=== PATIENT | female | born 1945 | race Caucasian/White ===

== ENCOUNTER 2021-07-26 13:45 | Emergency (ER) | payer MEDICARE, OTHER ==
[~2021-07-26] VITALS: Ht 157.4 cm; Wt 64.8 kg
[2021-07-26] MEDS ORDERED: NS IV 1000 ML 1,000 ML IV STA (14:06)
[2021-07-26 14:10] LABS: BASOPHILS % (AUTO) 1 % (0-10); EOSINOPHILS % (AUTO) 0 % (0-10); HEMATOCRIT 43 % (35-52); HEMOGLOBIN 14.4 g/dL (11.5-16.0); LYMPHOCYTES # (AUTO) 1.1 X 10^3 (1.0-4.0); LYMPHOCYTES % (AUTO) 32 % (12-44); MEAN CORPUSCULAR HEMOGLOBIN 30 pg (25-34); MEAN CORPUSCULAR HGB CONC 33 g/dL (32-36); MEAN CORPUSCULAR VOLUME 91 fL (80-99); MEAN PLATELET VOLUME 9.3 fL (9.0-12.2); MONOCYTES # (AUTO) 0.5 X 10^3 (0.0-1.0); MONOCYTES % (AUTO) 16 % (0-12); NEUTROPHILS # (AUTO) 1.7 X 10^3 (1.8-7.8); NEUTROPHILS % (AUTO) 52 % (42-75); PLATELET COUNT 186 10^3/uL (130-400); WHITE BLOOD COUNT 3.4 10^3/uL (4.3-11.0)
[2021-07-26 14:20] LABS: INR 0.9 (0.8-1.4)
--- NOTE | 2021-07-26 14:23 | ED General ---
General Chief Complaint: Chest Pain Stated Complaint: UPPER BACK PAIN/NAUSEA/DIZZINESS Source of Information: Patient History of Present Illness Date Seen by Provider: Jul 26, 2021 Time Seen by Provider: 13:50 Initial Comments 75-year-old female presenting with complaints of pain in her upper back between her shoulders as well as pain in her chest. She has had nausea and dizziness since last night. She has had chronic cough as she is a smoker. She denies having fever, chills, abdominal pain, burning with urination, swelling in her legs or feet, more shortness of breath than usual. She has been feeling dizzy and lightheaded especially when she stands up. She does have a history of triple bypass and pacemaker placement. She follows with cardiology out of [facility] in [place]. Severity: Moderate Modifying Factors: worse with Movement Associated Systoms: Chest Pain, Cough (chronic); No Diaphoresis, No Fever/Chills, No Headaches, No Loss of Appetite, No Malaise; Nausea/Vomiting (nausea but no vomiting); No Rash, No Seizure; Shortness of Air (chronic from smoking); No Syncope, No Weakness Allergies and Home Medications Allergies Coded Allergies: naproxen (Verified Allergy, Unknown, Rash, 07/26/21) blood blisters Patient Home Medication List Home Medication List Reviewed: Yes Review of Systems Review of Systems Constitutional: No chills, No fever EENTM: no symptoms reported Respiratory: see HPI Cardiovascular: see HPI Gastrointestinal: see HPI, nausea; No vomiting Genitourinary: no symptoms reported Musculoskeletal: see HPI, back pain (upper back pain across shoulders) Skin: no symptoms reported Psychiatric/Neurological: Anxiety Past Htsmmsr-Pfulnx-Csxgar Hx Patient Social History Tobacco Use?: Yes Tobacco type used: Cigarettes Smoking Status: Current Everyday Smoker Past Medical History Surgery/Hospitalization HX: CABG x 3, Pacemaker, Borderline DM, Htn, High Cholesterol, Chronic smoker, renal cell carcinoma with nephrectomy Surgeries: Yes Cardiac, CABG, Nephrectomy (Renal Cell Carcinoma), Pacemaker Respiratory: Yes COPD Cardiac: Yes Coronary Artery Disease, High Cholesterol, Hypertension Neurological: Yes Dementia (Early memory issues per patient) Genitourinary: No Gastrointestinal: No Musculoskeletal: Yes Osteoporosis, Arthritis Endocrine: Yes (Borderline DM) Cancer: Yes Kidney Did You Recieve Any Treatments: Yes What Type of Treatment Did You: Surgical Intervention Psychosocial: Yes Anxiety Physical Exam Vital Signs Vital Signs - First Documented 2/6/22 13:45 Temp 36.5 Pulse 64 Resp 16 B/P (MAP) 142/63 (89) Pulse Ox 95 O2 Delivery Room Air Capillary Refill : Height, Weight, BMI Height: '" Weight: lbs. oz. kg; BMI Method: General Appearance: WD/WN, Anxious HEENT: PERRL/EOMI, Pharynx Normal Neck: Full Range of Motion, Normal Inspection, Non Tender, Supple Respiratory: Chest Non Tender, Lungs Clear, Normal Breath Sounds, No Accessory Muscle Use, No Respiratory Distress Cardiovascular: Regular Rate, Rhythm, Normal Peripheral Pulses Gastrointestinal: Normal Bowel Sounds, No Pulsatile Mass, Non Tender, Soft Rectal: Deferred Back: No CVA Tenderness Extremity: Normal Capillary Refill, Normal Inspection, No Pedal Edema Neurologic/Psychiatric: Alert, Oriented x3, silk folder II-XII Norm as Tested Skin: Normal Color, Warm/Dry Progress/Results/Core Measures Suspected Sepsis SIRS Temperature: Pulse: Respiratory Rate: Laboratory Tests 07/26/21 13:59: White Blood Count 3.4L Blood Pressure / Mean: Laboratory Tests 07/26/21 13:59: Creatinine 1.43H, INR Comment 0.9, Platelet Count 186, Total Bilirubin 0.4 Results/Orders Lab Results Laboratory Tests Test 07/26/21 13:59 07/26/21 15:54 Range/Units White Blood Count 3.4 L 4.3-11.0 10^3/uL Red Blood Count 4.76 3.80-5.11 10^6/uL Hemoglobin 14.4 11.5-16.0 g/dL Hematocrit 43 35-52 % Mean Corpuscular Volume 91 80-99 fL Mean Corpuscular Hemoglobin 30 25-34 pg Mean Corpuscular Hemoglobin Concent 33 32-36 g/dL Red Cell Distribution Width 13.3 10.0-14.5 % Platelet Count 186 130-400 10^3/uL Mean Platelet Volume 9.3 9.0-12.2 fL Immature Granulocyte % (Auto) 0 % Neutrophils (%) (Auto) 52 42-75 % Lymphocytes (%) (Auto) 32 12-44 % Monocytes (%) (Auto) 16 H 0-12 % Eosinophils (%) (Auto) 0 0-10 % Basophils (%) (Auto) 1 0-10 % Neutrophils # (Auto) 1.7 L 1.8-7.8 X 10^3 Lymphocytes # (Auto) 1.1 1.0-4.0 X 10^3 Monocytes # (Auto) 0.5 0.0-1.0 X 10^3 Eosinophils # (Auto) 0.0 0.0-0.3 10^3/uL Basophils # (Auto) 0.0 0.0-0.1 10^3/uL Immature Granulocyte # (Auto) 0.0 0.0-0.1 10^3/uL Prothrombin Time 13.0 12.2-14.7 SEC INR Comment 0.9 0.8-1.4 Activated Partial Thromboplast Time 27 24-35 SEC Sodium Level 134 L 135-145 MMOL/L Potassium Level 4.2 3.6-5.0 MMOL/L Chloride Level 101 98-107 MMOL/L Carbon Dioxide Level 20 L 21-32 MMOL/L Anion Gap 13 5-14 MMOL/L Blood Urea Nitrogen 25 H 7-18 MG/DL Creatinine 1.43 H 0.60-1.30 MG/DL Estimat Glomerular Filtration Rate 38 BUN/Creatinine Ratio 17 Glucose Level 109 H 70-105 MG/DL Calcium Level 9.5 8.5-10.1 MG/DL Corrected Calcium 9.2 8.5-10.1 MG/DL Magnesium Level 1.9 1.6-2.4 MG/DL Total Bilirubin 0.4 0.1-1.0 MG/DL Aspartate Amino Transf (AST/SGOT) 23 5-34 U/L Alanine Aminotransferase (ALT/SGPT) 15 0-55 U/L Alkaline Phosphatase 72 40-136 U/L Myoglobin 83.3 10.0-92.0 NG/ML Troponin I < 0.30 <0.30 NG/ML Pro-B-Type Natriuretic Peptide 218.8 H <75.0 PG/ML Total Protein 7.1 6.4-8.2 GM/DL Albumin 4.4 3.2-4.5 GM/DL Lipase 34 8-78 U/L Urine Color YELLOW Urine Clarity CLEAR Urine pH 5.5 5-9 Urine Specific [place] 1.020 1.016-1.022 Urine Protein NEGATIVE NEGATIVE Urine Glucose (UA) NEGATIVE NEGATIVE Urine Ketones NEGATIVE NEGATIVE Urine Nitrite NEGATIVE NEGATIVE Urine Bilirubin NEGATIVE NEGATIVE Urine Urobilinogen 0.2 < = 1.0 MG/DL Urine Leukocyte Esterase NEGATIVE NEGATIVE Urine RBC (Auto) NEGATIVE NEGATIVE Urine RBC NONE /HPF Urine WBC NONE /HPF Urine Squamous Epithelial Cells 5-10 /HPF Urine Crystals NONE /LPF Urine Bacteria TRACE /HPF Urine Casts NONE /LPF Urine Hyaline Casts 2-5 H /LPF Urine Mucus MODERATE H /LPF Urine Culture Indicated NO My Orders Orders - LORETTA GREENBERG MD Cbc With Automated Diff (07/26/21 14:03) Magnesium (07/26/21 14:03) Chest 1 View Ap/Pa Only (07/26/21 14:03) Ekg Tracing (07/26/21 14:03) Comprehensive Metabolic Panel (07/26/21 14:03) Myoglobin Serum (07/26/21 14:03) Protime With Inr (07/26/21 14:03) Partial Thromboplastin Time (07/26/21 14:03) O2 (07/26/21 14:03) Monitor-Rhythm Ecg Trace Only (07/26/21 14:03) Ed Iv/Invasive Line Start (07/26/21 14:03) Lipase (07/26/21 14:03) Troponin I Fs (07/26/21 14:03) Probnp Fs (07/26/21 14:03) Ct Angio Chest W (07/26/21 14:03) Ns Iv 1000 Ml (Sodium Chloride 0.9%) (07/26/21 14:06) Ua Culture If Indicated (07/26/21 14:07) Iohexol Injection (Omnipaque 350 Mg/Ml 1 (07/26/21 14:45) Received Contrast (Hold Metformin- Contr (07/26/21 14:45) Ns (Ivpb) (Sodium Chloride 0.9% Ivpb Bag (07/26/21 14:45) Vital Signs/I&O 07/26/21 07/26/21 13:45 16:19 Temp 36.5 36.5 Pulse 64 60 Resp 16 14 B/P (MAP) 142/63 (89) 124/53 Pulse Ox 95 96 O2 Delivery Room Air Room Air Capillary Refill : Progress Note #1: Progress Note Check labs and electrolytes as well as cardiac enzymes. Obtain chest x-ray to evaluate her heart and lungs. Ordered CT angiogram of the chest to look at her aorta and blood vessels in the chest. Give IV fluids to try and help with her sensation of dizziness. 1 L NS IV fluid bolus for hydration. Progress Note #2: Progress Note Labs show no acute significant abnormality on her CBC to account for her symptoms. Her chemistry panel does show renal insufficiency with an elevated BUN and creatinine. Due to the elevated creatinine and low GFR she was asked questions about her renal function and at that point she remembered that she had a kidney removed due to renal cell carcinoma. Since she just has the one kidney and has dehydration or at least renal insufficiency will defer CT angiogram of her chest unless her chest x-ray showed widened mediastinum her abnormality of the aorta. She does not have any ST elevation on her electrocardiogram. She states that she was feeling better as we given her IV fluids here in the ED. Her initial blood pressure had been low and she was orthostatic. This has improved as she got a liter of normal saline for IV fluid hydration. Progress Note #3: Progress Note Chest x-ray does not show any acute abnormality with her aorta or mediastinum to the [place] that it would be worth the risk of damaging her kidney by giving her IV contrast to perform a CT angiogram. Especially considering that she was not having any further symptoms as she had been hydrated and her blood pressure came up. Counseled to try to drink more fluids. Obtained a urine specimen to ensure that she does not have a UTI that might be contributing to her symptoms. Progress Note #4: Progress Note Urinalysis was clear and did not show signs of UTI. Continue to encourage pat ient to drink fluids at home. Counseled on follow-up and return precautions. Advised to follow-up with her primary provider as well as her card feeder. Return for worsening symptoms or if she has something new develop. ECG Initial ECG Impression Date: Jul 26, 2021 Initial ECG Impression Time: 13:47 Initial ECG Rate: 64 Initial ECG Comparisson: No Previous ECG Available Comment Atrial paced rhythm with a rate of 64 bpm. [place] interval [address] elevation. QT interval 398 ms with a QTc interval of 411 ms. No prior tracing available for comparison. Diagnostic Imaging Diagonstic Imaging: Xray Plain Films/CT/US/NM/MRI: chest Comments [facility] [place], [place] NAME: TYREL MARTIN [facility] REC#: [id number] PT STATUS: REG ER : 1945 PHYSICIAN: LORETTA GREENBERG MD ADMIT DATE: 07/26/21/ER FS Signed Date of Exam:07/26/21 CHEST 1 VIEW AP/PA ONLY EXAMINATION: Chest radiograph, portable AP view. DATE: 07/26/2021 2:56 PM INDICATION: 75-year-old female, cough, shortness of breath. COMPARISON: None. FINDINGS: There are median sternotomy wires. There is a left-sided cardiac assist device with leads. Heart size and mediastinal contours are unremarkable. There is no identified pneumothorax. There is no large pleural effusion. There is no identified focal airspace consolidation. IMPRESSION: No identified acute cardiopulmonary abnormality. Dictated by: Dictated on workstation # [id number] Dict: 07/26/21 1504 Trans: 07/26/21 1545 PJ [id number] Interpreted by: MARIA ELENA TENORIO MD Electronically signed by: MARIA ELENA TENORIO MD 07/26/21 1545 Reviewed: Reviewed by Me Departure Impression Primary Impression: Acute upper back pain Additional Impressions: Chest pain Qualified Codes: R07.9 - Chest pain, unspecified Hypotension Qualified Codes: I95.9 - Hypotension, unspecified Disposition: 01 HOME, SELF-CARE Condition: Improved Departure-Patient Inst. Decision time for Depature: 16:11 Referrals: [facility] Patient Instructions: Upper Back Pain ED, Chest Pain, Adult ED, Low Blood Pressure (DC) Add. Discharge Instructions: Your tests look ok from a heart standpoint today and the pacemaker appears to be working ok It does look like you were dehydrated and you were doing better after getting some extra fluids. Keep drinking plenty of water and stay well hydrated. Check back with your regular providers and card feeder for continued concerns. Return or seek medical care for worsening symptoms or new problems. All discharge instructions reviewed with patient and/or family. Voiced understanding. LORETTA GREENBERG MD Jul 26, 2021 14:23
[2021-07-26 14:32] LABS: POTASSIUM 4.2 MMOL/L (3.6-5.0)
[2021-07-26 14:33] LABS: ALBUMIN 4.4 GM/DL (3.2-4.5); BILIRUBIN,TOTAL 0.4 MG/DL (0.1-1.0); CALCIUM 9.5 MG/DL (8.5-10.1); CREATININE SERUM 1.43 MG/DL (0.60-1.30); MAGNESIUM 1.9 MG/DL (1.6-2.4); TOTAL PROTEIN 7.1 GM/DL (6.4-8.2)
[2021-07-26] MEDS ORDERED: NS 100 ML (IVPB) BAG IV ONE (14:45)
[2021-07-26] MEDS ORDERED: HOLD METFORMIN - RECEIVED CONTRAST 20 ML VIAL IV SCH (14:45)
[2021-07-26] MEDS ORDERED: IOHEXOL 350 MG/ML 150 ML (OMNIPAQUE 350) VIAL IV ONE (14:45)
--- NOTE | 2021-07-26 15:06 | Diagnostic Imaging Report ---
EXAMINATION: Chest radiograph, portable AP view. DATE: 07/26/2021 2:56 PM INDICATION: 75-year-old female, cough, shortness of breath. COMPARISON: None. FINDINGS: There are median sternotomy wires. There is a left-sided cardiac assist device with leads. Heart size and mediastinal contours are unremarkable. There is no identified pneumothorax. There is no large pleural effusion. There is no identified focal airspace consolidation. IMPRESSION: No identified acute cardiopulmonary abnormality. Dictated by: Dictated on workstation # [id number]
[2021-07-26 16:01] LABS: BACTERIA,URINE TRACE /HPF; BILIRUBIN,URINE NEGATIVE (NEGATIVE); CLARITY,URINE CLEAR; COLOR,URINE YELLOW; GLUCOSE, URINE (UA) NEGATIVE (NEGATIVE); KETONES,URINE NEGATIVE (NEGATIVE); LEUKOCYTE ESTERASE ,URINE NEGATIVE (NEGATIVE); NITRITE,URINE NEGATIVE (NEGATIVE); PH,URINE 5.5 (5-9); PROTEIN,URINE NEGATIVE (NEGATIVE)
[2021-07-26 16:19] VITALS: BP 124/53
== END 2021-07-26 16:19 | disposition home or self-care (01) ==
LOC: ER FS 13:54
DX: M54.6 Pain in thoracic spine (principal); R07.9 Chest pain, unspecified; I95.9 Hypotension, unspecified; J44.9 Chronic obstructive pulmonary disease, unspecified; I10 Essential (primary) hypertension; F03.90 Unspecified dementia, unspecified severity, without behavioral disturbance, psychotic disturbance, mood disturbance, and anxiety; E11.9 Type 2 diabetes mellitus without complications; F17.210 Nicotine dependence, cigarettes, uncomplicated
CPT/HCPCS: 36415; 71045; 80053; 81000; 83690; 83735; 83874; 83880; 84484; 85025; 85610; 85730; 93005; 93041

== ENCOUNTER → 2022-04-14 | Outpatient (CLI) | payer MEDICARE, OTHER ==
[~2022-04-14] MED LIST: CATHETER FLUSH 10 ML SYR IV PRN; HOLD METFORMIN - RECEIVED CONTRAST 20 ML VIAL IV SCH; IOHEXOL 350 MG/ML 100 ML (OMNIPAQUE 350) VIAL IV ONE; NS 100 ML (IVPB) BAG IV ONE
[2022-04-14 11:55] LABS: POTASSIUM 4.5 MMOL/L (3.6-5.0)
[2022-04-14 11:56] LABS: ALBUMIN 4.5 GM/DL (3.2-4.5); BILIRUBIN,TOTAL 0.5 MG/DL (0.1-1.0); CREATININE SERUM 1.25 MG/DL (0.60-1.30)
--- NOTE | 2022-04-14 12:57 | Diagnostic Imaging Report ---
PROCEDURE: CT abdomen and pelvis without contrast. TECHNIQUE: Multiple contiguous axial images were obtained through the abdomen and pelvis without the use of intravenous contrast. Auto Exposure Controls were utilized during the CT exam to meet ALARA standards for radiation dose reduction. INDICATION: Lower abdominal pain and renal cancer. COMPARISON: No prior studies are available for comparison. FINDINGS: The lung bases are clear. The liver and gallbladder are unremarkable. There is no biliary ductal dilatation. The pancreas and spleen are unremarkable. No adrenal mass is identified. Left kidney appears to be surgically absent. No residual or recurrent mass is identified. The right kidney is unremarkable. Aorta is heavily calcified but nonaneurysmal. Bowel loops are normal in caliber. There is extensive diverticulosis of the sigmoid colon but no evidence of acute diverticulitis. No free fluid or fluid collection is seen. Bladder is unremarkable. Bony structures are nonacute. IMPRESSION: 1. Status post left nephrectomy. No residual or recurrent mass is identified. No definite abdominal or pelvic lymphadenopathy is identified. 2. Uncomplicated diverticulosis. Dictated by: Dictated on workstation # [id number]
== END ==
LOC: LAB FS 11:09
PROVIDERS: ATTEND Nurse Practitioner
DX: K57.30 Diverticulosis of large intestine without perforation or abscess without bleeding (principal); I10 Essential (primary) hypertension; E78.5 Hyperlipidemia, unspecified; Z90.5 Acquired absence of kidney; Z85.528 Personal history of other malignant neoplasm of kidney
CPT/HCPCS: 36415; 74176; 80053

== ENCOUNTER 2022-10-10 14:53 | Emergency (ER) | payer MEDICARE, OTHER ==
[~2022-10-10] VITALS: Ht 157 cm; Wt 62.0 kg
[2022-10-10] MEDS ORDERED: ASPIRIN 81 MG CHEW (CHILDREN'S ASA) PO ONE (15:00)
[2022-10-10 15:12] LABS: BASOPHILS % (AUTO) 0 % (0-10); EOSINOPHILS % (AUTO) 0 % (0-10); HEMATOCRIT 49 % (35-52); HEMOGLOBIN 15.9 g/dL (11.5-16.0); LYMPHOCYTES # (AUTO) 0.6 10^3/uL (1.0-4.0); LYMPHOCYTES % (AUTO) 8 % (12-44); MEAN CORPUSCULAR HEMOGLOBIN 30 pg (25-34); MEAN CORPUSCULAR HGB CONC 33 g/dL (32-36); MEAN CORPUSCULAR VOLUME 92 fL (80-99); MEAN PLATELET VOLUME 9.7 fL (9.0-12.2); MONOCYTES # (AUTO) 0.2 10^3/uL (0.0-1.0); MONOCYTES % (AUTO) 2 % (0-12); NEUTROPHILS # (AUTO) 7.2 10^3/uL (1.8-7.8); NEUTROPHILS % (AUTO) 89 % (42-75); PLATELET COUNT 253 10^3/uL (130-400)
[2022-10-10 15:17] LABS: INR 0.9 (0.8-1.4); PROTHROMBIN TIME PATIENT 12.5 SEC (12.2-14.7)
[2022-10-10 15:24] LABS: BUN/CREATININE RATIO 19; CARBON DIOXIDE 25 MMOL/L (21-32); CHLORIDE 103 MMOL/L (98-107); CREATININE SERUM 1.17 MG/DL (0.60-1.30); GFR ESTIMATED 48; GLUCOSE 138 MG/DL (70-105); MAGNESIUM 2.1 MG/DL (1.6-2.4); POTASSIUM 4.6 MMOL/L (3.6-5.0); SODIUM 138 MMOL/L (135-145)
[2022-10-10 15:25] LABS: ALANINE AMINOTRANSFERASE 19 U/L (0-55); ALBUMIN 4.8 GM/DL (3.2-4.5); ALKALINE PHOSPHATASE 73 U/L (40-136); BILIRUBIN,TOTAL 0.5 MG/DL (0.1-1.0); TOTAL PROTEIN 7.9 GM/DL (6.4-8.2)
--- NOTE | 2022-10-10 15:38 | Diagnostic Imaging Report ---
INDICATION: Chest pain. TECHNIQUE: Single view chest 3:28 PM. CORRELATION STUDY: 07/26/2021. FINDINGS: Poststernotomy change. Heart size and mediastinum are stable with left-sided pacemaker unchanged. Azygos lobe. Elevated right diaphragm. No infiltrate. No significant effusion or pneumothorax. IMPRESSION: Generally stable chest demonstrates no acute abnormality. Dictated by: Dictated on workstation # [id number]
[2022-10-10 15:48] LABS: LYMPHOCYTES % (MANUAL) 8 %; MONOCYTES % (MANUAL) 2 %; NEUTROPHILS % (MANUAL) 90 %
--- NOTE | 2022-10-10 15:48 | ED Chest Pain ---
General Chief Complaint: Chest Pain Stated Complaint: CHEST PAIN Nursing Triage Note: Patient has presented to ER with cc chest pain on her left side. The pain is sometimes sharp and today it has become constant and dull with some small episodes of pain. The pain started intermittant 2 days ago. She denies any injury to her chest wall. History of Present Illness Date Seen by Provider: Oct 10, 2022 Time Seen by Provider: 14:56 Initial Comments 77-year-old female with PMH of CAD with [place] approximately 6 to 7 years ago/pacemaker, placed 6 to 7 years ago/thyroid disorder/HTN/active smoker (pt smoking since age 14 yrs), and smokes 1.5 packs a day since then. Patient is here with complaints of left-sided chest pain which is intermittent for the past 2 days. Patient states that her chest hurts when she presses down upon it. Patient had a little bit of shortness of breath early today morning but has since resolved. She occasionally gets acid reflux. Denies palpitations, fever and chills, abdominal pain, nausea and vomiting, diaphoresis. Patient is unsure why she has a pacemaker. She is not on a blood thinner except for baby aspirin. Allergies and Home Medications Allergies Coded Allergies: naproxen (Verified Allergy, Unknown, Rash, 07/26/21) blood blisters Patient Home Medication List Home Medication List Reviewed: Yes Review of Systems Review of Systems Constitutional: no symptoms reported EENTM: No Symptoms Reported Respiratory: No Symptoms Reported Cardiovascular: Chest Pain Gastrointestinal: No Symptoms Reported Genitourinary: No Symptoms Reported Musculoskeletal: no symptoms reported Skin: no symptoms reported Psychiatric/Neurological: No Symptoms Reported Endocrine: No Symptoms Reported Hematologic/Lymphatic: No Symptoms Reported Past Riynvqi-Qqgoxm-Gpidlv Hx Patient Social History Tobacco Use?: Yes Tobacco type used: Cigarettes Smoking Status: Current Everyday Smoker Use of E-Cig and/or Vaping dev: No Substance use?: No Alcohol Use?: No Immunizations Up To Date First/Initial COVID19 Vaccinat: Not currently Vaccinated Past Medical History Surgery/Hospitalization HX: CABG x 3, Pacemaker, Borderline DM, Htn, High Cholesterol, Chronic smoker, renal cell carcinoma with nephrectomy Surgeries: Yes Cardiac, CABG, Nephrectomy, Pacemaker Respiratory: Yes COPD Cardiac: Yes Coronary Artery Disease, High Cholesterol, Hypertension Neurological: Yes Dementia Genitourinary: No Gastrointestinal: No Musculoskeletal: Yes Osteoporosis, Arthritis Endocrine: Yes (Borderline DM) Cancer: Yes Kidney Did You Recieve Any Treatments: Yes What Type of Treatment Did You: Surgical Intervention Psychosocial: Yes Anxiety Physical Exam Vital Signs Capillary Refill : Height, Weight, BMI Height: '" Weight: lbs. oz. kg; 25.00 BMI Method: General Appearance: No Apparent Distress, WD/WN HEENT: PERRL/EOMI Neck: Full Range of Motion Respiratory: Lungs Clear, Normal Breath Sounds, Other (Chest wall point tenderness present over the second, third, costochondral junctions on palpation, which is reproducible.) Cardiovascular: Regular Rate, Rhythm, No Edema Gastrointestinal: Non Tender, Soft Neurologic/Psychiatric: Alert, Oriented x3, No Motor/Sensory Deficits Skin: Normal Color Progress/Results/Core Measures Results/Orders Lab Results Laboratory Tests Test 10/10/22 15:00 10/10/22 16:26 Range/Units White Blood Count 8.0 4.3-11.0 10^3/uL Red Blood Count 5.30 H 3.80-5.11 10^6/uL Hemoglobin 15.9 11.5-16.0 g/dL Hematocrit 49 35-52 % Mean Corpuscular Volume 92 80-99 fL Mean Corpuscular Hemoglobin 30 25-34 pg Mean Corpuscular Hemoglobin Concent 33 32-36 g/dL Red Cell Distribution Width 13.8 10.0-14.5 % Platelet Count 253 130-400 10^3/uL Mean Platelet Volume 9.7 9.0-12.2 fL Immature Granulocyte % (Auto) 1 % Neutrophils (%) (Auto) 89 H 42-75 % Lymphocytes (%) (Auto) 8 L 12-44 % Monocytes (%) (Auto) 2 0-12 % Eosinophils (%) (Auto) 0 0-10 % Basophils (%) (Auto) 0 0-10 % Neutrophils # (Auto) 7.2 1.8-7.8 10^3/uL Lymphocytes # (Auto) 0.6 L 1.0-4.0 10^3/uL Monocytes # (Auto) 0.2 0.0-1.0 10^3/uL Eosinophils # (Auto) 0.0 0.0-0.3 10^3/uL Basophils # (Auto) 0.0 0.0-0.1 10^3/uL Immature Granulocyte # (Auto) 0.1 0.0-0.1 10^3/uL Neutrophils % (Manual) 90 % Lymphocytes % (Manual) 8 % Monocytes % (Manual) 2 % Prothrombin Time 12.5 12.2-14.7 SEC INR Comment 0.9 0.8-1.4 Activated Partial Thromboplast Time 22 L 24-35 SEC D-Dimer 0.27 0.00-0.49 UG/ML Sodium Level 138 135-145 MMOL/L Potassium Level 4.6 3.6-5.0 MMOL/L Chloride Level 103 98-107 MMOL/L Carbon Dioxide Level 25 21-32 MMOL/L Anion Gap 10 5-14 MMOL/L Blood Urea Nitrogen 22 H 7-18 MG/DL Creatinine 1.17 0.60-1.30 MG/DL Estimat Glomerular Filtration Rate 48 BUN/Creatinine Ratio 19 Glucose Level 138 H 70-105 MG/DL Calcium Level 11.0 H 8.5-10.1 MG/DL Corrected Calcium 8.5-10.1 MG/DL Magnesium Level 2.1 1.6-2.4 MG/DL Total Bilirubin 0.5 0.1-1.0 MG/DL Aspartate Amino Transf (AST/SGOT) 19 5-34 U/L Alanine Aminotransferase (ALT/SGPT) 19 0-55 U/L Alkaline Phosphatase 73 40-136 U/L Troponin I < 0.30 < 0.30 <0.30 NG/ML Pro-B-Type Natriuretic Peptide 1061.0 H <450.0 PG/ML Total Protein 7.9 6.4-8.2 GM/DL Albumin 4.8 H 3.2-4.5 GM/DL My Orders Orders - WINTER HERRERA MD Continuous Ekg Monitoring (10/10/22 14:58) Ekg Tracing (10/10/22 14:58) Chest 1 View Ap/Pa Only (10/10/22 14:58) Cbc With Automated Diff (10/10/22 14:59) Magnesium (10/10/22 14:59) Comprehensive Metabolic Panel (10/10/22 14:59) Protime With Inr (10/10/22 14:59) Partial Thromboplastin Time (10/10/22 14:59) Aspirin Chewable Tablet (Baby Aspirin Ch (10/10/22 15:00) Ed Iv/Invasive Line Start (10/10/22 14:59) Fibrin Degradation Products (10/10/22 14:59) Troponin I Fs (10/10/22 14:59) Probnp Fs (10/10/22 14:59) Manual Differential (10/10/22 15:00) Famotidine Injection (Pepcid Injection) (10/10/22 16:00) Antacid Suspension (Mylanta Suspension (10/10/22 16:00) Ekg Tracing (10/10/22 16:26) Troponin I Fs (10/10/22 16:26) Medications Given in ED Current Medications Medications Dose Ordered Sig/Tim Route Start Time Stop Time Status Last Admin Dose Admin Al Hydrox/Mg Hydrox/Simethicone 30 ml ONCE ONCE PO 10/10/22 16:00 10/10/22 16:01 DC 10/10/22 16:18 30 ML Aspirin 324 mg ONCE ONCE PO 10/10/22 15:00 10/10/22 15:10 DC 10/10/22 15:13 324 MG Famotidine 20 mg ONCE ONCE IVP 10/10/22 16:00 10/10/22 16:01 DC 10/10/22 16:17 20 MG Progress Progress Note : Progress Note 1. ACS RULE OUT/ ACUTE COSTOCHONDRITIS/ ACUTE GERD: - CXR: No acute findings - EKGx2 : non-ischemic - Troponin x2 : undetected - CBC/ CMP: - BNP: 1,000 - D-dimer: negative - ASA 324mg STAT - Pepcid 20mg iv STAT/ Maalox -Advised smoking cessation -Advised ibuprofen for 100 mg every 6 hours as needed for pain, take with food. Advised Pepcid 20 mg daily, which is [id number] -Patient's truck repair supervisor is at [facility]. Patient has not seen him for over a year. Advise follow-up with truck repair supervisor within the next 7 days -Advised to follow-up with PCP in the next 7 days -The patient was seen in the ED, and treated appropriately to presentation at a specific point in time. Patient is informed that there is a possibility that disease and illness can evolve and change in acuity rapidly or slowly after patient is discharged from the ER. Precautionary advice given to the patient for immediate return to ER if symptoms worsen or do not resolve, and to seek emergency care sooner rather than later. Pt also advised on the importance of PCP follow up and compliance with management and follow up plan with PCP and/or specialist, as this is part of the management plan. Pt verbally expressed understanding. Initial ECG Impression Date: Oct 10, 2022 Initial ECG Impression Time: 15:00 Initial ECG Rate: 64 Initial ECG Rhythm: Normal Sinus Initial ECG Intervals: Normal Initial ECG Impression: Normal, Nonspecific Changes Initial ECG Comparisson: No Previous ECG Available Comment Paced EKG : EKG Time: 16:38 Rate: 62 Rhythm: Normal Sinus Intervals: Normal ECG Comparisson: Unchanged ECG Impression: Normal, Nonspecific Changes Comment Paced Diagnostic Imaging Diagonstic Imaging: Xray Plain Films/CT/US/NM/MRI: chest Comments [facility] [place] [place] NAME: TYREL MARTIN [facility] REC#: [id number] PT STATUS: REG ER : 1945 PHYSICIAN: WINTER HERRERA MD ADMIT DATE: 10/10/22/ER FS Draft Date of Exam:10/10/22 CHEST 1 VIEW AP/PA ONLY INDICATION: Chest pain. TECHNIQUE: Single view chest 3:28 PM. CORRELATION STUDY: 07/26/2021. FINDINGS: Poststernotomy change. Heart size and mediastinum are stable with left-sided pacemaker unchanged. Azygos lobe. Elevated right diaphragm. No infiltrate. No significant effusion or pneumothorax. IMPRESSION: Generally stable chest demonstrates no acute abnormality. Dictated on workstation # [id number] Dict: 10/10/22 1532 Trans: 10/10/22 1538 [facility] [id number] Interpreted by: HIEU BARRERA DO Electronically signed by: Departure Impression Primary Impression: Ruled out for myocardial infarction Additional Impressions: Acute costochondritis GERD (gastroesophageal reflux disease) Disposition: 01 HOME, SELF-CARE Condition: Stable Departure-Patient Inst. Referrals: SRINIVASA SHAH (PCP) Primary Care Physician DIANE CAO MD (Family) Primary Care Physician Patient Instructions: Chest Pain That Is Not Caused by the Heart (DC), Costocho ndritis, Acid Reflux and Gastroesophageal Reflux Disease in Adults, Heart Healthy Diet Add. Discharge Instructions: -Advised ibuprofen for 100 mg every 6 hours as needed for pain, take with food. Advised Pepcid 20 mg daily, which is [id number] -Patient's truck repair supervisor is at [facility]. Patient has not seen him for over a year. Advise follow-up with truck repair supervisor within the next 7 days -Advised to follow-up with PCP in the next 7 days - advised smoking cessation All discharge instructions reviewed with patient and/or family. Voiced understanding. WINTER HERRERA MD Oct 10, 2022 15:48
[2022-10-10] MEDS ORDERED: FAMOTIDINE 20MG/2ML IV (PEPCID) IVP ONE (16:00)
[2022-10-10] MEDS ORDERED: ANTACID SUSP 30 ML UDC (MYLANTA) PO ONE (16:00)
== END 2022-10-10 17:00 | disposition home or self-care (01) ==
LOC: EDUNIT# 14:53 → ER FS 14:55
DX: M94.0 Chondrocostal junction syndrome [Tietze] (principal); K21.9 Gastro-esophageal reflux disease without esophagitis; F17.210 Nicotine dependence, cigarettes, uncomplicated; Z95.0 Presence of cardiac pacemaker; Z79.82 Long term (current) use of aspirin; Z28.310 Unvaccinated for COVID-19
CPT/HCPCS: 36415; 71045; 80053; 83735; 83880; 84484; 85007; 85027; 85379; 85610; 85730; 93005

== ENCOUNTER 2023-05-17 18:55 | Emergency (ER) | payer MEDICARE, OTHER ==
[~2023-05-17] VITALS: Ht 157.4 cm; Wt 56.0 kg
--- NOTE | 2023-05-17 19:19 | ED General ---
General Stated Complaint: CHEST/BACK TIGHTNESS,DIZZY History of Present Illness Date Seen by Provider: May 17, 2023 Time Seen by Provider: 19:06 Initial Comments 77-year-old female with PMH of CAD/ CABG with pacemaker/ Renal cell carcinoma/ nephrectomy, is here with complaints of dizziness and back pain in the subscapular region bilaterally, which began yesterday night. Pt is under a lot of stress because her son is dying. Pt has not been sleeping well, has not been drinking much water, and is stressed and anxious. Her meals are not regular either. Denies blurry vision, headache, chest pain, SOB, falls, hearing issues. Allergies and Home Medications Allergies Coded Allergies: naproxen (Verified Allergy, Unknown, Rash, 07/26/21) blood blisters Patient Home Medication List Home Medication List Reviewed: Yes Review of Systems Review of Systems Constitutional: dizziness EENTM: no symptoms reported Respiratory: no symptoms reported Cardiovascular: chest pain Past Gkkulrf-Guwfoz-Baowwy Hx Immunizations Up To Date First/Initial COVID19 Vaccinat: Not currently Vaccinated Past Medical History Surgery/Hospitalization HX: CABG x 3, Pacemaker, Borderline DM, Htn, High Cholesterol, Chronic smoker, renal cell carcinoma with nephrectomy Surgeries: Yes Cardiac, CABG, Nephrectomy, Pacemaker Respiratory: Yes COPD Cardiac: Yes Coronary Artery Disease, High Cholesterol, Hypertension Neurological: Yes Dementia Genitourinary: No Gastrointestinal: No Musculoskeletal: Yes Osteoporosis, Arthritis Endocrine: Yes (Borderline DM) Cancer: Yes Kidney Did You Recieve Any Treatments: Yes What Type of Treatment Did You: Surgical Intervention Psychosocial: Yes Anxiety Physical Exam Vital Signs Vital Signs - First Documented 05/17/23 18:55 Temp 35.7 Pulse 67 Resp 16 B/P (MAP) 194/65 (108) Pulse Ox 97 O2 Delivery Room Air Capillary Refill : Height, Weight, BMI Height: '" Weight: lbs. oz. 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/Affect, 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 Norm as Tested Skin: Normal Color Progress/Results/Core Measures Suspected Sepsis SIRS Temperature: Pulse: Respiratory Rate: Laboratory Tests 05/17/23 19:07: White Blood Count 6.7 Blood Pressure / Mean: Laboratory Tests 05/17/23 19:07: Creatinine 1.20, INR Comment 0.9, Platelet Count 257, Total Bilirubin 0.5 Results/Orders Lab Results Laboratory Tests Test 05/17/23 19:07 05/17/23 19:50 Range/Units White Blood Count 6.7 4.3-11.0 10^3/uL Red Blood Count 4.77 3.80-5.11 10^6/uL Hemoglobin 14.6 11.5-16.0 g/dL Hematocrit 45 35-52 % Mean Corpuscular Volume 93 80-99 fL Mean Corpuscular Hemoglobin 31 25-34 pg Mean Corpuscular Hemoglobin Concent 33 32-36 g/dL Red Cell Distribution Width 13.8 10.0-14.5 % Platelet Count 257 130-400 10^3/uL Mean Platelet Volume 9.9 9.0-12.2 fL Immature Granulocyte % (Auto) 0 % Neutrophils (%) (Auto) 62 42-75 % Lymphocytes (%) (Auto) 28 12-44 % Monocytes (%) (Auto) 8 0-12 % Eosinophils (%) (Auto) 1 0-10 % Basophils (%) (Auto) 1 0-10 % Neutrophils # (Auto) 4.1 1.8-7.8 10^3/uL Lymphocytes # (Auto) 1.9 1.0-4.0 10^3/uL Monocytes # (Auto) 0.6 0.0-1.0 10^3/uL Eosinophils # (Auto) 0.1 0.0-0.3 10^3/uL Basophils # (Auto) 0.1 0.0-0.1 10^3/uL Immature Granulocyte # (Auto) 0.0 0.0-0.1 10^3/uL Prothrombin Time 12.5 12.2-14.7 SEC INR Comment 0.9 0.8-1.4 Activated Partial Thromboplast Time 23 L 24-35 SEC Sodium Level 141 135-145 MMOL/L Potassium Level 4.2 3.6-5.0 MMOL/L Chloride Level 105 98-107 MMOL/L Carbon Dioxide Level 27 21-32 MMOL/L Anion Gap 9 5-14 MMOL/L Blood Urea Nitrogen 24 H 7-18 MG/DL Creatinine 1.20 0.60-1.30 MG/DL Estimat Glomerular Filtration Rate 46 BUN/Creatinine Ratio 20 Glucose Level 101 70-105 MG/DL Calcium Level 11.1 H 8.5-10.1 MG/DL Corrected Calcium 8.5-10.1 MG/DL Magnesium Level 2.4 1.6-2.4 MG/DL Total Bilirubin 0.5 0.1-1.0 MG/DL Aspartate Amino Transf (AST/SGOT) 18 5-34 U/L Alanine Aminotransferase (ALT/SGPT) 13 0-55 U/L Alkaline Phosphatase 75 40-136 U/L Troponin I < 0.30 <0.30 NG/ML Pro-B-Type Natriuretic Peptide 514.4 H <450.0 PG/ML Total Protein 8.3 H 6.4-8.2 GM/DL Albumin 5.0 H 3.2-4.5 GM/DL Urine Color YELLOW Urine Clarity CLEAR Urine pH 5.5 5-9 Urine Specific [place] >=1.030 1.016-1.022 Urine Protein NEGATIVE NEGATIVE Urine Glucose (UA) NEGATIVE NEGATIVE Urine Ketones NEGATIVE NEGATIVE Urine Nitrite NEGATIVE NEGATIVE Urine Bilirubin NEGATIVE NEGATIVE Urine Urobilinogen 0.2 < = 1.0 MG/DL Urine Leukocyte Esterase NEGATIVE NEGATIVE Urine RBC (Auto) NEGATIVE NEGATIVE Urine RBC RARE /HPF Urine WBC 0-2 /HPF Urine Squamous Epithelial Cells 0-2 /HPF Urine Crystals NONE /LPF Urine Bacteria TRACE /HPF Urine Casts PRESENT /LPF Urine Hyaline Casts 2-5 H /LPF Urine Mucus MODERATE H /LPF Urine Culture Indicated NO My Orders Orders - WINTER HERRERA MD Cbc And Automated Diff (05/17/23 19:06) Comprehensive Metabolic Panel (05/17/23 19:06) Magnesium (05/17/23 19:06) Protime With Inr (05/17/23 19:06) Partial Thromboplastin Time (05/17/23 19:06) Probnp Fs (05/17/23 19:06) Troponin I Fs (05/17/23 19:06) Continuous Ekg Monitoring (05/17/23 19:07) Ekg Tracing (05/17/23 19:07) Chest 1 View Ap/Pa Only (05/17/23 19:08) Ct Head Wo (05/17/23 19:08) Ua Culture If Indicated (05/17/23 19:09) Vital Signs/I&O 05/17/23 18:55 Temp 35.7 Pulse 67 Resp 16 B/P (MAP) 194/65 (108) Pulse Ox 97 O2 Delivery Room Air Capillary Refill : Progress Note : Progress Note 1. STRESS CAUSING INSOMNIA/ POOR LIQUID AND FOOD INTAKE - CT HEAD: no acute findings - CXR: unremarkable - EKG: no acute findings, paced - CBC/ CMP: normal - Troponin:undetectable - BNP:unremarkable - UA:negative for infection - Follow up with PC within 3 to 7 days - Advised good sleep hygiene, advised to take melatonin which pt has at home 30 min prior to sleeping, adequate water intake, meals at regular intervals. -The patient was seen in the ED, and treated appropriately to presentation at a specific point in time. Patient is informed that there is a possibility that disease and illness can evolve and change in acuity rapidly or slowly after patient is discharged from the ER. Precautionary advice given to the patient for immediate return to ER if symptoms worsen or do not resolve, and to seek emergency care sooner rather than later. Pt also advised on the importance of PCP follow up and compliance with management and follow up plan with PCP and/or specialist, as this is part of the management plan. Pt verbally expressed understanding. ECG Initial ECG Impression Date: May 17, 2023 Initial ECG Impression Time: 19:00 Initial ECG Rate: 66 Initial ECG Rhythm: Normal Sinus Initial ECG Impression: Normal, Nonspecific Changes Initial ECG Comparisson: No Previous ECG Available Comment Pacemaker Diagnostic Imaging Diagonstic Imaging: Xray, CT Plain Films/CT/US/NM/MRI: chest, head Comments [facility]. [place], [place] NAME: SANDRO MARTINZARINA Cadet [facility] REC#: [id number] PT STATUS: REG ER : 1945 PHYSICIAN: WINTER HERRERA MD ADMIT DATE: 05/17/23/ER FS Draft Date of Exam:05/17/23 CT HEAD WO PROCEDURE: CT head without contrast. TECHNIQUE: Multiple contiguous axial images were obtained through the brain without the use of intravenous contrast. Auto Exposure Controls were utilized during the CT exam to meet ALARA standards for radiation dose reduction. INDICATION: Near syncope. No prior studies are available for comparison. The ventricles and sulci are within normal limits. No sulcal effacement or midline shift is identified. No acute intra-axial or extra-axial hemorrhage is detected. Cisterns are patent. Visualized paranasal sinuses are clear. IMPRESSION: No acute intracranial process is detected. Dictated on workstation # [id number] Dict: 05/17/231929 Trans: 05/17/231931 CV [id number] Interpreted by: FIDE KIRBY MD Electronically signed by: NAME: TYREL MARTIN MED REC#: [id number] PT STATUS: REG ER : 1945 PHYSICIAN: WINTER HERRERA MD ADMIT DATE: 05/17/23/ER FS Draft Date of Exam:05/17/23 CHEST 1 VIEW AP/PA ONLY Indication: Near syncope. Time of Exam: 7:05 PM Correlation is made with prior chest 10/10/2022. The heart size is stable. There are changes of median sternotomy. Dual lead left subclavian cardiac pacemaker remains in place. Right hemidiaphragm is chronically elevated. Lungs are clear. No infiltrates are detected. There is no effusion or pneumothorax. IMPRESSION: Stable chest. No acute cardiopulmonary process is detected. Dictated on workstation # [id number] Dict: 05/17/231930 Trans: 05/17/231932 CV [id number] Interpreted by: FIDE KIRBY MD Electronically signed by: Departure Impression Primary Impression: Near syncope Additional Impressions: Stress at home Insomnia due to stress Decreased oral intake Disposition: 01 HOME, SELF-CARE Condition: Stable Departure-Patient Inst. Referrals: SRINIVASA SHAH (PCP) Primary Care Physician DIANE CAO MD (Family) Primary Care Physician Patient Instructions: How to Keep Track of Your Sleep, Insomnia (DC), Stress Add. Discharge Instructions: - Follow up with PC within 3 to 7 days - Advised good sleep hygiene, advised to take melatonin which pt has at home 30 min prior to sleeping, adequate water intake, meals at regular intervals. WINTER HERRERA MD May 17, 2023 19:19
[2023-05-17 19:28] LABS: BASOPHILS # (AUTO) 0.1 10^3/uL (0.0-0.1); BASOPHILS % (AUTO) 1 % (0-10); EOSINOPHILS # (AUTO) 0.1 10^3/uL (0.0-0.3); EOSINOPHILS % (AUTO) 1 % (0-10); HEMATOCRIT 45 % (35-52); HEMOGLOBIN 14.6 g/dL (11.5-16.0); LYMPHOCYTES # (AUTO) 1.9 10^3/uL (1.0-4.0); LYMPHOCYTES % (AUTO) 28 % (12-44); MEAN CORPUSCULAR HEMOGLOBIN 31 pg (25-34); MEAN CORPUSCULAR HGB CONC 33 g/dL (32-36); MEAN CORPUSCULAR VOLUME 93 fL (80-99); MEAN PLATELET VOLUME 9.9 fL (9.0-12.2); MONOCYTES # (AUTO) 0.6 10^3/uL (0.0-1.0); MONOCYTES % (AUTO) 8 % (0-12); NEUTROPHILS # (AUTO) 4.1 10^3/uL (1.8-7.8); NEUTROPHILS % (AUTO) 62 % (42-75); PLATELET COUNT 257 10^3/uL (130-400); WHITE BLOOD COUNT 6.7 10^3/uL (4.3-11.0)
--- NOTE | 2023-05-17 19:32 | Diagnostic Imaging Report ---
PROCEDURE: CT head without contrast. TECHNIQUE: Multiple contiguous axial images were obtained through the brain without the use of intravenous contrast. Auto Exposure Controls were utilized during the CT exam to meet ALARA standards for radiation dose reduction. INDICATION: Near syncope. No prior studies are available for comparison. The ventricles and sulci are within normal limits. No sulcal effacement or midline shift is identified. No acute intra-axial or extra-axial hemorrhage is detected. Cisterns are patent. Visualized paranasal sinuses are clear. IMPRESSION: No acute intracranial process is detected. Dictated by: Dictated on workstation # [id number]
--- NOTE | 2023-05-17 19:33 | Diagnostic Imaging Report ---
Indication: Near syncope. Time of Exam: 7:05 PM Correlation is made with prior chest 10/10/2022. The heart size is stable. There are changes of median sternotomy. Dual lead left subclavian cardiac pacemaker remains in place. Right hemidiaphragm is chronically elevated. Lungs are clear. No infiltrates are detected. There is no effusion or pneumothorax. IMPRESSION: Stable chest. No acute cardiopulmonary process is detected. Dictated by: Dictated on workstation # [id number]
[2023-05-17 19:48] LABS: POTASSIUM 4.2 MMOL/L (3.6-5.0)
[2023-05-17 19:49] LABS: INR 0.9 (0.8-1.4); PROTHROMBIN TIME PATIENT 12.5 SEC (12.2-14.7)
[2023-05-17 20:00] LABS: BILIRUBIN,URINE NEGATIVE (NEGATIVE); CLARITY,URINE CLEAR; COLOR,URINE YELLOW; GLUCOSE, URINE (UA) NEGATIVE (NEGATIVE); KETONES,URINE NEGATIVE (NEGATIVE); LEUKOCYTE ESTERASE ,URINE NEGATIVE (NEGATIVE); NITRITE,URINE NEGATIVE (NEGATIVE); PH,URINE 5.5 (5-9); PROTEIN,URINE NEGATIVE (NEGATIVE)
[2023-05-17 20:08] LABS: BACTERIA,URINE TRACE /HPF; RBC,URINE RARE /HPF; SQUAMOUS EPITHELIAL CELL,UR 0-2 /HPF; WBC,URINE 0-2 /HPF
[2023-05-17 20:11] LABS: SODIUM 141 MMOL/L (135-145)
[2023-05-17 20:12] LABS: BUN/CREATININE RATIO 20; CARBON DIOXIDE 27 MMOL/L (21-32); CHLORIDE 105 MMOL/L (98-107); GFR ESTIMATED 46; GLUCOSE 101 MG/DL (70-105)
[2023-05-17 20:13] LABS: ALANINE AMINOTRANSFERASE 13 U/L (0-55); ALKALINE PHOSPHATASE 75 U/L (40-136); BILIRUBIN,TOTAL 0.5 MG/DL (0.1-1.0); CALCIUM 11.1 MG/DL (8.5-10.1); MAGNESIUM 2.4 MG/DL (1.6-2.4); TOTAL PROTEIN 8.3 GM/DL (6.4-8.2)
[2023-05-17 20:50] VITALS: BP 186/67
== END 2023-05-17 20:50 | disposition home or self-care (01) ==
LOC: EDUNIT# 18:55 → ER FS 18:55
DX: F51.02 Adjustment insomnia (principal); R55 Syncope and collapse; R63.8 Other symptoms and signs concerning food and fluid intake
CPT/HCPCS: 36415; 70450; 71045; 80053; 81000; 83735; 83880; 84484; 85025; 85610; 85730; 93005